=== PATIENT | female | born 1965 | race Caucasian/White ===

== ENCOUNTER 2016-11-28 00:46 | Emergency (ER) | payer MEDICARE, OTHER ==
[~2016-11-28] VITALS: Ht 147.3 cm; Wt 68.0 kg
[~2016-11-28 00:46] MED LIST: AMITRIPTYLINE H50 MG PO; ATIVAN1 MG PO; BACTROBAN22 GM TOP; BENADRYL25 MG PO; CEPHALEXIN500 MG PO; CLONIDINE HCL0.1 MG PO; CYCLOBENZAPRINE10 MG PO; FIORINAL 50-321 EACH PO; FISH OIL CONC1000 MG PO; FOLIC ACID1 MG PO; HYDROCODON-ACE1 EA10 PO; HYDROCODON-ACE1 EA11 PO; HYDROCODON-ACE1 EAC8 PO; HYZAAR 100-251 EACH PO; HYZAAR 50-12.5 T1 EA PO; KENALOG-4040 MG/ML MC; LORAZEPAM1 MG PO; LOSARTAN-HCTZ1 EACH PO; METHYLPREDNISOLO4 M1 PO; MIRALAX17 GM PO; MUPIROCIN22 GM TOP; NORCO 5-325 TA1 EACH; NORCO 5-325 TA1 EACH PO; NORCO 7.5-3251 EACH PO; PAIN RELIEVER500 MG PO; PENICILLIN V P250 MG; PERCOCET 5-3251 EACH PO; PRAVACHOL40 MG PO; PRAVASTATIN SOD10 MG PO; PREDNISONE20 MG PO; PROCRIT SUB-Q; PROMETHAZINE HC25 M1 PO; RANITIDINE HCL150 MG PO; SINGULAIR10 MG PO; TRAMADOL HCL50 MG PO; TRIAMCINOLONE A80 GM TOP; VITAMIN B12-FO1 EACH PO; VITAMIN D35000 UNIT PO; VIVELLE TD; WELLBUTRIN SR100 MG PO; ZANAFLEX4 MG PO; ZOFRAN ODT4 MG PO; ZOFRAN4 MG PO; ZYRTEC10 M3 PO
[2016-11-28] MEDS ORDERED: NORVASC5 MG PO (01:41)
[2016-11-28] MEDS ORDERED: TIZANIDINE HCL2 M1 PO (01:41)
== END 2016-11-28 04:34 | disposition home or self-care (01) ==
LOC: ED 00:46
DX: S30.1XXA Contusion of abdominal wall, initial encounter (principal); E78.00 Pure hypercholesterolemia, unspecified; I25.10 Atherosclerotic heart disease of native coronary artery without angina pectoris; I10 Essential (primary) hypertension; Z90.49 Acquired absence of other specified parts of digestive tract; Z90.89 Acquired absence of other organs; Z90.710 Acquired absence of both cervix and uterus; Z88.5 Allergy status to narcotic agent; Z88.8 Allergy status to other drugs, medicaments and biological substances; Z88.6 Allergy status to analgesic agent; Z79.899 Other long term (current) drug therapy; W01.0XXA Fall on same level from slipping, tripping and stumbling without subsequent striking against object, initial encounter
CPT/HCPCS: 74177; 80053; 81001; 82150; 85025; 96374; 99284; J2405; Q9967

== ENCOUNTER 2017-01-08 14:54 | Emergency (ER) | payer MEDICARE, OTHER ==
[~2017-01-08] VITALS: Ht 147.3 cm; Wt 70.3 kg
[~2017-01-08 14:54] MED LIST changes: +NORVASC5 MG PO; +TIZANIDINE HCL2 M1 PO
[2017-01-08] MEDS ORDERED: PLAQUENIL200 MG PO (15:04)
[2017-01-08] MEDS ORDERED: ZOFRAN ODT4 MG PO (16:54)
--- NOTE | 2017-01-08 23:18 | EKG ---
[facility] [address] [place], [place] [address] Signed Normal sinus rhythm T wave abnormality, consider lateral ischemia Prolonged QT Abnormal ECG No previous ECGs available Confirmed by KENNEDY PIMENTEL MD ([id number]) on 01/08/2017 11:17:49 PM Electronically Signed By: KENNEDY PIMENTEL MD 01/08/17 2318 PATIENT NAME: SOLITARIO LEW Electrocardiogram DATE OF : 63 PHYSICIAN: KENNEDY PIMENTEL MD REPORT #: [id number] REPORT IS CONFIDENTIAL AND NOT TO BE RELEASED WITHOUT AUTHORIZATION
== END 2017-01-08 18:14 | disposition home or self-care (01) ==
LOC: ED 14:54
DX: M32.9 Systemic lupus erythematosus, unspecified (principal); R42 Dizziness and giddiness; R51 Headache; R11.2 Nausea with vomiting, unspecified; E78.00 Pure hypercholesterolemia, unspecified; Z88.5 Allergy status to narcotic agent; Z88.8 Allergy status to other drugs, medicaments and biological substances; Z88.6 Allergy status to analgesic agent; Z90.49 Acquired absence of other specified parts of digestive tract; Z98.890 Other specified postprocedural states; Z79.899 Other long term (current) drug therapy; Z90.710 Acquired absence of both cervix and uterus; I25.10 Atherosclerotic heart disease of native coronary artery without angina pectoris
CPT/HCPCS: 80053; 84484; 85025; 93005; 93010; 96361; 96374; 96375; 99284; J1200; J1885; J2765; J7030

== ENCOUNTER 2018-03-27 15:06 | Emergency (ER) | payer MEDICARE, OTHER ==
[~2018-03-27] VITALS: Ht 147.3 cm; Wt 65.8 kg
[~2018-03-27 15:06] MED LIST changes: +PLAQUENIL200 MG PO
--- OUTSIDE RECORDS SUMMARY | 2018-03-27 15:08 | XMS ---
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 Leo VISIT COUNT (12 MO.) [address] [place] [address] [address] TOTAL 4 NOTE: Visits indicate total known visits. ED/UCC VISIT TRACKING (12 MO.) 03/27/2018 15:07 [facility] [place] TYPE: Emergency COMPLAINT: - FLANK PAIN 03/07/2018 16:28 [facility] [place] TYPE: Emergency DIAGNOSES: - Constipation, unspecified - side pain nausea 03/02/2018 18:30 [facility] [place] TYPE: Emergency DIAGNOSES: - ABDOMINAL PAIN - Left upper quadrant pain 02/16/2018 13:42 [facility] TYPE: Emergency DIAGNOSES: - Discoid lupus erythematosus - FLU / FEVER/CHILLS/SWELLING INPATIENT VISIT TRACKING (12 MO.) No inpatient visits to display in this time frame [id number]
[2018-03-27] MEDS ORDERED: ZOFRAN4 MG PO (20:21)
== END 2018-03-27 20:46 | disposition home or self-care (01) ==
LOC: ED 15:06
DX: R10.12 Left upper quadrant pain (principal); R11.2 Nausea with vomiting, unspecified; G43.909 Migraine, unspecified, not intractable, without status migrainosus; I25.10 Atherosclerotic heart disease of native coronary artery without angina pectoris; Z88.8 Allergy status to other drugs, medicaments and biological substances; Z88.5 Allergy status to narcotic agent; Z88.6 Allergy status to analgesic agent; Z79.899 Other long term (current) drug therapy
CPT/HCPCS: 74176; 80053; 81001; 83690; 85025; 96361; 96374; 96375; 96376; 99284-25; J1170; J2405; J7030